=== PATIENT | female | born 1990 | race African-American/Black ===

== ENCOUNTER 2023-06-30 05:14 | Day surgery (SDC) | payer OTHER ==
[2023-06-28 09:29] VITALS: BMI 24.0
[2023-06-30] MEDS ORDERED: MIDAZOLAM HCL 2 MG/2 ML SINGLE DOSE VIAL ONE (14:35)
[2023-06-30] MEDS ORDERED: PROPOFOL 20 ML ONE (14:46)
[2023-06-30] MEDS ORDERED: FENTANYL CITRATE/PF 50 MCG/ML VIAL ONE ×2 (14:47→15:25)
[2023-06-30] MEDS ORDERED: LIDOCAINE HCL/PF 2% SDV 5ML VIAL ONE (14:49)
[2023-06-30] MEDS ORDERED: DEXAMETHASONE SOD PHOSPHATE 4 MG/1 ML VIAL ONE (14:49)
[2023-06-30] MEDS ORDERED: KETOROLAC TROMETHAMINE 30 MG/1 ML VIAL ONE (14:49)
[2023-06-30] MEDS ORDERED: ONDANSETRON 4 MG/2 ML VIAL ONE (14:49)
[2023-06-30] MEDS ORDERED: SEVOFLURANE 250 ML BTL ONE (14:59)
[2023-06-30] MEDS: IODINE/POTASSIUM IODIDE 5%/10% 14 ML BOTTLE NR ONE (14:59)
[2023-06-30] MEDS ORDERED: ACETAMINOPHEN INJECTION 100 ML IVPB ONE (14:59)
[2023-06-30] MEDS: FERRIC SUBSULFATE 500 ML BOTTLE TP ONE (15:08)
[2023-06-30] MEDS ORDERED: oxyCODONE HCL 5 MG TABLET PO PRN (15:23)
[2023-06-30] MEDS ORDERED: ONDANSETRON 4 MG/2 ML VIAL IVPUSH PRN (15:23)
[2023-06-30] MEDS ORDERED: LACTATED RINGERS SOLUTION 1,000 ML IV SCH (15:30)
[2023-06-30] MEDS ORDERED: ACETAMINOPHEN 325 MG TABLET (FP) PO PRN (15:32)
[2023-06-30] MEDS ORDERED: IBUPROFEN 400 MG TABLET (FP) PO PRN (15:32)
[2023-06-30 16:17] VITALS: TEMP 98
[2023-06-30 17:17] VITALS: BP 112/76; PULSE 74; RESP 17
== END 2023-06-30 17:28 | disposition home or self-care (01) ==
LOC: JASU-SURG 05:14
PROVIDERS: ATTEND Specialist
PROC: 0UBC7ZX Excision of Cervix, Via Natural or Artificial Opening, Diagnostic (ICD-10-PCS; principal; 2023-06-30 14:00)
DX: D06.7 Carcinoma in situ of other parts of cervix (principal)
CPT/HCPCS: 81025; 88307-TC; 88341-TC; 88342-TC; 94760; J0131